=== PATIENT | female | born 1995 | race Caucasian/White ===

== ENCOUNTER 2018-01-10 19:47 | Emergency (ER) | payer OTHER, MEDICAID ==
[~2018-01-10] VITALS: Ht 160 cm; Wt 81.7 kg
[~2018-01-10 19:47] MED LIST: ACCUNEB SO1.25 MG/1 INH; ALBUTEROL INH INH; ALBUTEROL INHAL17 GM IH; ALBUTEROL NEB; BACTRIM DS TAB1 EACH PO; CIPROFLOXACIN500 M1 PO; CIPROFLOXACIN500 M3 PO; CLARITIN10 MG PO; FLONASE NS; IBUPROFEN 800800 M1 PO; LORTABELXR PO; MEDROLDOSEPACK PO; NOHOMEMEDICATIONS; PROAIR HFA8.5 GM IH; PYRIDIUM200 MG PO; ULTRAM 50MG TAB50 MG PO; ZOFRAN ODT4 MG PO; ZPAK PO
[2018-01-10 20:22] LABS: INFLUENZA A ANTIGEN None Detected (None Detect); INFLUENZA B ANTIGEN None Detected (None Detect)
[2018-01-10] MEDS ORDERED: FLONASE 0.05%50 MCG NASAL (20:28)
[2018-01-10 20:48] VITALS: BP 121/80
== END 2018-01-10 20:49 | disposition home or self-care (01) ==
LOC: M.ERS 19:47
PROVIDERS: Nurse Practitioner Family
DX: B34.9 Viral infection, unspecified (principal); H92.03 Otalgia, bilateral; J45.909 Unspecified asthma, uncomplicated; F17.210 Nicotine dependence, cigarettes, uncomplicated

== ENCOUNTER 2019-10-07 17:44 | Emergency (ER) | payer OTHER, MEDICAID ==
[~2019-10-07] VITALS: Ht 157.5 cm; Wt 72.6 kg
[~2019-10-07 17:44] MED LIST changes: +FLONASE 0.05%50 MCG NASAL
[2019-10-07] MEDS ORDERED: ZPAK PO (19:43)
[2019-10-07] MEDS ORDERED: MUCINEX600 MG PO (19:43)
[2019-10-07] MEDS ORDERED: FLONASE 0.05%50 MCG NARES (19:43)
[2019-10-07 20:01] VITALS: BP 144/72
== END 2019-10-07 20:01 | disposition home or self-care (01) ==
LOC: M.ERS 17:44
DX: J06.9 Acute upper respiratory infection, unspecified (principal); Z20.828 Contact with and (suspected) exposure to other viral communicable diseases; J45.909 Unspecified asthma, uncomplicated; F17.210 Nicotine dependence, cigarettes, uncomplicated; Z98.890 Other specified postprocedural states

== ENCOUNTER 2021-04-12 08:55 | Emergency (ER) | payer OTHER, MEDICAID ==
[~2021-04-12] VITALS: Ht 157.5 cm; Wt 77.1 kg
[~2021-04-12 08:55] MED LIST changes: +FLONASE 0.05%50 MCG NARES; +MUCINEX600 MG PO
[2021-04-12] MEDS ORDERED: ZPAK PO (10:58)
[2021-04-12] MEDS ORDERED: TESSALON PERLE100 MG PO (10:58)
[2021-04-12] MEDS ORDERED: VENTOLIN HFA 1818 GM INH (10:58)
[2021-04-12] MEDS ORDERED: ALBUTEROL2.5 MG/3 M INH (10:58)
[2021-04-12] MEDS ORDERED: PREDNISONE 20 M20 M1 PO (10:58)
[2021-04-12 12:20] VITALS: BP 135/86
== END 2021-04-12 12:20 | disposition home or self-care (01) ==
LOC: M.ERS 08:55
DX: J18.9 Pneumonia, unspecified organism (principal); J45.909 Unspecified asthma, uncomplicated; Z87.891 Personal history of nicotine dependence